=== PATIENT | female | born 1980 | race Hispanic/Latino ===

== ENCOUNTER 2017-08-16 10:58 | Emergency (ER) | payer BC ==
[~2017-08-16] VITALS: Ht 154.9 cm; Wt 108.0 kg
[~2017-08-16 10:58] MED LIST: BACTRIM DS1 TAB PO
[2017-08-16] MEDS ORDERED: TRAMADOL HYDROC50 MG PO (11:34)
[2017-08-16] MEDS ORDERED: BACTRIM DS1 TAB PO (11:34)
[2017-08-16 11:38] VITALS: BP 132/86
== END 2017-08-16 12:21 | disposition home or self-care (01) | DRG 747 ==
LOC: ED 10:58
PROC: 0U9MXZZ Drainage of Vulva, External Approach (ICD-10-PCS; principal; 2017-08-16)
DX: N76.4 Abscess of vulva (principal); F17.210 Nicotine dependence, cigarettes, uncomplicated

== ENCOUNTER 2017-08-17 10:43 | Emergency (ER) | payer BC ==
[~2017-08-17] VITALS: Ht 154.9 cm; Wt 109.0 kg
[~2017-08-17 10:43] MED LIST changes: +TRAMADOL HYDROC50 MG PO
[2017-08-17 11:11] VITALS: BP 135/70
== END 2017-08-17 11:05 | disposition home or self-care (01) | DRG 951 ==
LOC: ED 10:43
DX: Z48.01 Encounter for change or removal of surgical wound dressing (principal); F17.210 Nicotine dependence, cigarettes, uncomplicated